=== PATIENT | male | born 1975 | race African-American/Black ===

== ENCOUNTER 2024-10-02 20:02 | Emergency (ER) | payer OTHER ==
[~2024-10-02] VITALS: Ht 167.6 cm; Wt 74.8 kg
[~2024-10-02 20:02] MED LIST: NO REPORTED MEDS
[2024-10-02 20:06] VITALS: TEMP 99.8
[2024-10-02] MEDS: IV NS 0.9% 1,000 ML BAG IV ONE (20:10)
[2024-10-02 20:46] LABS: BASOPHILS # (AUTO) 0.1 K/uL (0.0-0.2); BASOPHILS % (AUTO) 0.9 % (0.0-2.0); EOSINOPHILS # (AUTO) 0.2 K/uL (0.0-0.7); EOSINOPHILS % (AUTO) 1.2 % (0.0-6.0); HEMATOCRIT 42 % (39-51); HEMOGLOBIN 13.7 g/dL (13.5-17.5); LYMPHOCYTES # (AUTO) 1.4 K/uL (0.8-4.8); LYMPHOCYTES % (AUTO) 8.8 % (20.0-44.0); MEAN CORPUSCULAR HEMOGLOBIN 28 PG (26.0-33.0); MEAN CORPUSCULAR HGB CONC 33 g/dl (31.0-36.0); MEAN CORPUSCULAR VOLUME 84 fL (80-96); MONOCYTES # (AUTO) 1.7 K/uL (0.1-1.30); MONOCYTES % (AUTO) 11.1 % (2.0-12.0); NEUTROPHILS # (AUTO) 12.3 K/uL (1.8-8.9); PLATELET COUNT (AUTO) 383 K/uL (150-450); RED BLOOD CELL COUNT(AUTO) 4.98 MIL/uL (4.5-6.0); RED CELL DISTRIBUTION WIDTH 14.4 % (11.5-15.0); WHITE BLOOD COUNT (AUTO) 15.8 K/uL (4.3-11.0)
[2024-10-02 20:52] LABS: CALCIUM, SERUM 8.9 mg/dL (8.5-10.1); CARBON DIOXIDE 27 mmol/L (21-32); CHLORIDE 105 mmol/L (98-107); CREATININE 1.3 mg/dL (0.6-1.3); GLUCOSE 110 mg/dL (74-106); SODIUM SERUM 137 mmol/L (136-145); UREA NITROGEN, BLOOD 13 mg/dL (7-18)
[2024-10-02] MEDS ORDERED: ACETAMINOPHEN ES 500 MG TABLET ONE (21:22)
[2024-10-02] MEDS ORDERED: AMOX-430 PO (21:24)
[2024-10-02] MEDS: ACETAMINOPHEN ES 500 MG TABLET PO ONE (21:25)
[2024-10-02] MEDS: CEFTRIAXONE 1 G in IV D5W 50 ML IV ONE (21:37)
[2024-10-02] MEDS ORDERED: CEFTRIAXONE 1GM BAG (ER ONLY) 50 ML IV ONE (21:37)
[2024-10-02 23:05] VITALS: BP 120/72; O2SAT 99
== END 2024-10-02 22:55 | disposition home or self-care (01) ==
LOC: ER 20:04
DX: J18.9 Pneumonia, unspecified organism (principal); I25.2 Old myocardial infarction; R00.0 Tachycardia, unspecified; Z59.00 Homelessness unspecified; Z95.5 Presence of coronary angioplasty implant and graft; Z87.19 Personal history of other diseases of the digestive system
CPT/HCPCS: 99285; 96365; 71045; 93005; 85025; 80048; 36415; 84484; J0696 ×2; J7060